=== PATIENT | male | born 2000 | race African-American/Black ===

== ENCOUNTER 2022-04-28 13:21 | Emergency (ER) | payer MEDICAID ==
[~2022-04-28] VITALS: Ht 182.9 cm; Wt 53.0 kg
[2022-04-28 19:05] LABS: CHLORIDE 100 mEq/L (98-107); HEMATOCRIT. 46.5 % (42.0-52.0); HEMOGLOBIN. 15.8 g/dL (14.0-18.0); MEAN CORPUSCULAR HEMOGLOBIN 31.7 pg (28.0-32.0); MEAN CORPUSCULAR VOLUME 93.2 fL (80.0-94.0); PLATELET 177 x1000/uL (130-400); RED BLOOD CELL COUNT 4.99 mill/uL (4.7-6.1); RED CELL DISTRIBUTION WIDTH 13.4 % (11.6-14.6)
[2022-04-28 20:54] LABS: PLATELET ESTIMATE NORMAL
[2022-04-28 21:06] VITALS: BP 135/83
[2022-04-28] MEDS ORDERED: ALBUTEROL (0.083%) 2.5MG/3ML NEB HHN STA (21:11)
[2022-04-28] MEDS ORDERED: IPRATROPIUM BROMIDE (0.02%) 0.5MG/2.5ML NEB HHN STA (21:11)
[2022-04-28] MEDS ORDERED: ALBU6.7H9 INH (21:57)
== END 2022-04-28 22:55 | disposition home or self-care (01) ==
LOC: ER 13:21
DX: R06.02 Shortness of breath (principal); Z20.822 Contact with and (suspected) exposure to COVID-19
CPT/HCPCS: 36415; 71045; 80053; 83880; 84484; 85025; 87426; 93005; 94640; 99285; C9803; Z7610